=== PATIENT | male | born 2000 | race Caucasian/White ===

== ENCOUNTER 2019-03-23 20:38 | Emergency (ER) | payer OTHER ==
[2019-03-23] MEDS ORDERED: BUFFERED LIDOCAINE 10 ML SYRINGE SUBQ STA (22:54)
--- NOTE | 2019-03-23 22:55 | ED Physician Documentation ---
History of Present Illness - Stated complaint Stated Complaint: HEAD INJURY - Chief complaint Chief Complaint: Laceration - Additonal information Additional information: This is a 19-year-old male presents for laceration of left eyebrow. He works repairing planes, today he turned around and accidentally hit his head against a piece of a plane's wing, which cut his eyebrow. The bleeding stopped almost immediately. He denies any loss of consciousness vomiting, he otherwise feels fine. Review of Systems Eyes: denies: Irritation Skin: reports: Laceration (s) Neurologic: denies: LOC PD PAST MEDICAL HISTORY - Past Medical History Past Medical History: No - Past Surgical History Past Surgical History: No - Allergies Allergies/Adverse Reactions: Allergies Allergy/AdvReac Type Severity Reaction Status Date / Time No Known Drug Allergies Allergy Verified 03/23/19 21:21 - Social History Does the pt smoke?: No Smoking Status: Never smoker - Immunizations Immunizations are current?: Yes PD ED PE NORMAL - General General: Alert and oriented X 3, No acute distress - HEENT HEENT: Other (There is a 3.5 cm laceration in left eyebrow. This extends into the subcutaneous tissue in the margins of the wound are . 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, Normal speech Results - Vitals Vitals: Vital Signs - 24 hr 03/23/19 03/24/19 21:21 00:15 Temperature 37.4 C Heart Rate 88 73 Respiratory 15 16 Rate Blood Pressure 149/75 H 130/76 O2 Saturation 98 100 Oxygen O2 Source Room air Procedures - Laceration (location) L eyebrow Length in cm: 3.5 Wound type: Linear Anesthesia: Lidocaine 1%, With bicarb Wound Preparation: Irrigated copiously NS Skin layer closure: Prolene, Other (six 6-0 sutures) Other: Patient tolerated well, No complications, Tetanus UTD Complexity: Simple PD MEDICAL DECISION MAKING - ED course ED course: Patient presents with an isolated laceration to his eyebrow. He had no loss of consciousness, no vomiting, No significant head injury or signs of concussion. The laceration is clean and is running directly through the eyebrow itself. No eye or eyelid involvement. This was cleaned and repaired using 6-0 Prolene, the end cosmetic result was excellent. I discussed wound care with him, follow-up for removal of his sutures in 5 to 7 days, and return to the emergency department with any signs of infection or other worsening. Patient agreed and was discharged home. Departure - Departure Disposition: 01 Home, Self Care Clinical Impression: Laceration Condition: Good Instructions: ED Laceration All Follow-Up: Your,PCP [Other] (In 5-7 days for suture removal) Comments: Your eyebrow was sutured, you may keep a thin layer of antibiotic ointment or Vaseline over the area of the stitches to help prevent crusting/scabbing from forming, this make it easier to have the stitches removed and helps prevent scarring. You may shower normally but do not scrub at your eyebrow. The stitches should be checked for removal in 5 to 7 days. The thread of the sutures is blue to make it easier for them to be picked out from between the eyebrow hair. If you have any signs of infection such as redness around the eye or pus draining from the wound return to the emergency department. Discharge Date/Time: 03/24/19 00:15
[2019-03-24 00:15] VITALS: BP 130/76
== END 2019-03-24 00:15 | disposition home or self-care (01) ==
LOC: ED 20:38
DX: S01.112A Laceration without foreign body of left eyelid and periocular area, initial encounter (principal); W22.09XA Striking against other stationary object, initial encounter; Y93.89 Activity, other specified; Y99.0 Civilian activity done for income or pay
CPT/HCPCS: 12013; 99281